=== PATIENT | female | born 1995 | race Two or more races ===

== ENCOUNTER → 2016-09-24 | Outpatient (CLI) | payer MEDICAID ==
[2016-09-24 09:04] LABS: Basophils # (auto) 0 uL; Basophils % (auto) 0.3 % (0.0-2.0); Eosinophils # (auto) 0.1 uL; Eosinophils % (auto) 0.8 % (0.0-7.0); Hematocrit 37.1 % (36.0-46.0); Hemoglobin 12.4 g/dL (12.2-16.2); Lymphocytes # (auto) 1.5 uL; Lymphocytes % (auto) 18.8 % (10.0-50.0); Mean Corpuscular Hemoglobin 30.4 pg (28.0-32.0); Mean Corpuscular Hgb Conc. 33.3 g/dL (32.0-36.0); Mean Corpuscular Volume 91.4 fL (80.0-100.0); Mean Platelet Volume 9.2 fL (7.4-10.4); Monocytes # (auto) 0.5 uL; Monocytes % (auto) 6.3 % (0.0-12.0); Neutrophils # (auto) 5.8 uL; Neutrophils % (auto) 73.8 % (37.0-80.0); Platelet Count (auto) 231 10^3/uL (140-450); Red Cell Distribution Width 14.6 % (11.6-16.0); White Blood Cell 7.8 10^3/uL (4.4-10.8)
== END | disposition home or self-care (01) ==
LOC: LAB 08:18
PROVIDERS: ATTEND Obstetrics & Gynecology
DX: Z34.00 Encounter for supervision of normal first pregnancy, unspecified trimester (principal); Z11.3 Encounter for screening for infections with a predominantly sexual mode of transmission; N76.0 Acute vaginitis
CPT/HCPCS: 36415; 85025; 87081

== ENCOUNTER 2016-10-11 22:39 | Observation (INO) | payer MEDICAID ==
[2016-10-13] MEDS ORDERED: PRENCAP61 PO (08:47)
== END 2016-10-11 23:54 | disposition home or self-care (01) | DRG 566 ==
LOC: LDRP 22:39
PROVIDERS: ADMIT Specialist; ATTEND Specialist
DX: O62.9 Abnormality of forces of labor, unspecified (principal); Z3A.38 38 weeks gestation of pregnancy
CPT/HCPCS: 59025; 81002; G0378

== ENCOUNTER 2016-12-02 14:29 | Emergency (ER) | payer OTHER ==
[~2016-12-02] VITALS: Ht 162.6 cm; Wt 77.1 kg
[~2016-12-02 14:29] MED LIST: PRENCAP61 PO
[2016-12-02 14:40] VITALS: BP 117/78
[2016-12-02] MEDS ORDERED: BACITRACIN TOP OINT 1 UD PKG TOP ONE (16:30)
[2016-12-02] MEDS ORDERED: IBUPROFEN 600 MG TAB PO ONE (16:30)
== END 2016-12-02 16:47 | disposition home or self-care (01) ==
LOC: EDUNIT# 14:29 → ER 14:46
DX: S60.022A Contusion of left index finger without damage to nail, initial encounter (principal); W23.0XXA Caught, crushed, jammed, or pinched between moving objects, initial encounter; Y93.89 Activity, other specified; Y99.0 Civilian activity done for income or pay; Y92.69 Other specified industrial and construction area as the place of occurrence of the external cause
CPT/HCPCS: 73140

== ENCOUNTER → 2017-04-30 | Outpatient (CLI) | payer MEDICAID ==
[2017-04-30 11:45] LABS: Basophils # (auto) 0 uL; Basophils % (auto) 0.5 % (0.0-2.0); Eosinophils # (auto) 0.1 uL; Eosinophils % (auto) 1.7 % (0.0-7.0); Hematocrit 37.5 % (36.0-46.0); Hemoglobin 12.8 g/dL (12.2-16.2); Lymphocytes # (auto) 1.7 uL; Lymphocytes % (auto) 19.9 % (10.0-50.0); Mean Corpuscular Hemoglobin 30.3 pg (28.0-32.0); Mean Corpuscular Hgb Conc. 34.1 g/dL (32.0-36.0); Mean Corpuscular Volume 88.8 fL (80.0-100.0); Mean Platelet Volume 8.5 fL (6.9-10.8); Monocytes # (auto) 0.3 uL; Neutrophils # (auto) 6.4 uL; Neutrophils % (auto) 73.9 % (37.0-80.0); Nucleated Red Blood Cells % 0.1 %; Platelet Count (auto) 265 10^3/uL (140-450); Red Cell Distribution Width 13.2 % (11.8-14.3); White Blood Cell 8.7 10^3/uL (4.4-10.8)
== END | disposition home or self-care (01) ==
LOC: LAB 10:18
PROVIDERS: ATTEND Obstetrics & Gynecology
DX: Z34.80 Encounter for supervision of other normal pregnancy, unspecified trimester (principal); Z31.430 Encounter of female for testing for genetic disease carrier status for procreative management; Z3A.00 Weeks of gestation of pregnancy not specified
CPT/HCPCS: 36415; 83036; 84146; 84702; 85025; 86592; 86703; 86762; 86850; 86900; 86901; 87086; 87340

== ENCOUNTER → 2017-06-10 | Outpatient (CLI) | payer MEDICAID | END | disposition home or self-care (01) | LOC: LAB 15:15 | PROVIDERS: ATTEND Obstetrics & Gynecology | DX: Z34.80 Encounter for supervision of other normal pregnancy, unspecified trimester (principal); Z3A.00 Weeks of gestation of pregnancy not specified | CPT/HCPCS: 87086 ==

== ENCOUNTER → 2017-07-01 | Outpatient (CLI) | payer MEDICAID ==
[2017-07-01 17:35] LABS: Alcohol, Urine < 3.0 mg/dL (0-5); Amphetamine Screen, Urine NEGATIVE (NEGATIVE); Barbiturate Scree,Urine NEGATIVE (NEGATIVE); Benzodiazephine Screen, Urine NEGATIVE (NEGATIVE); Cannabinoid Screen, Urine NEGATIVE (NEGATIVE); Cocaine Screen, Urine NEGATIVE (NEGATIVE); Opiate Scree,Urine NEGATIVE (NEGATIVE); Phencyclidine Screen, Urine NEGATIVE (NEGATIVE)
== END | disposition home or self-care (01) ==
LOC: LAB 16:36
PROVIDERS: ATTEND Obstetrics & Gynecology
DX: Z34.80 Encounter for supervision of other normal pregnancy, unspecified trimester (principal); Z3A.00 Weeks of gestation of pregnancy not specified
CPT/HCPCS: 80307

== ENCOUNTER → 2017-09-04 | Outpatient (CLI) | payer MEDICAID ==
[2017-09-04 07:53] LABS: Basophils # (auto) 0 uL; Basophils % (auto) 0.3 % (0.0-2.0); Eosinophils # (auto) 0 uL; Eosinophils % (auto) 0.4 % (0.0-7.0); Hematocrit 37.2 % (36.0-46.0); Hemoglobin 12.7 g/dL (12.2-16.2); Lymphocytes # (auto) 1.1 uL; Lymphocytes % (auto) 13.3 % (10.0-50.0); Mean Corpuscular Hgb Conc. 34.1 g/dL (32.0-36.0); Mean Corpuscular Volume 93.8 fL (80.0-100.0); Monocytes # (auto) 0.5 uL; Monocytes % (auto) 5.5 % (0.0-12.0); Neutrophils # (auto) 6.7 uL; Neutrophils % (auto) 80.5 % (37.0-80.0); Platelet Count (auto) 152 10^3/uL (140-450); Red Blood Cells 3.96 10^6/uL (4.0-5.20); Red Cell Distribution Width 14.3 % (11.8-14.3); White Blood Cell 8.4 10^3/uL (4.4-10.8)
== END | disposition home or self-care (01) ==
LOC: LAB 07:21
PROVIDERS: ATTEND Obstetrics & Gynecology
DX: O99.810 Abnormal glucose complicating pregnancy (principal); Z3A.00 Weeks of gestation of pregnancy not specified
CPT/HCPCS: 36415; 82951; 85025

== ENCOUNTER 2017-09-05 14:14 | Observation (INO) | payer MEDICAID | END 2017-09-05 15:54 | disposition home or self-care (01) | DRG 566 | LOC: LDRP 14:14 | PROVIDERS: ADMIT Obstetrics & Gynecology; ATTEND Obstetrics & Gynecology | DX: O30.003 Twin pregnancy, unspecified number of placenta and unspecified number of amniotic sacs, third trimester (principal); Z3A.31 31 weeks gestation of pregnancy | CPT/HCPCS: 59025; 76818; 81002; G0378 ==

== ENCOUNTER 2017-09-07 09:48 | Observation (INO) | payer MEDICAID | END 2017-09-07 11:45 | disposition home or self-care (01) | DRG 566 | LOC: LDRP 09:48 | PROVIDERS: ADMIT Obstetrics & Gynecology; ATTEND Obstetrics & Gynecology | DX: O30.003 Twin pregnancy, unspecified number of placenta and unspecified number of amniotic sacs, third trimester (principal); Z3A.31 31 weeks gestation of pregnancy | CPT/HCPCS: 59025; 76815; 81002; G0378 ==

== ENCOUNTER 2017-09-08 19:27 | Observation (INO) | payer MEDICAID | END 2017-09-08 20:44 | disposition home or self-care (01) | DRG 566 | LOC: LDRP 19:27 | PROVIDERS: ADMIT Specialist; ATTEND Specialist | DX: O62.9 Abnormality of forces of labor, unspecified (principal); Z3A.32 32 weeks gestation of pregnancy | CPT/HCPCS: G0378 ==

== ENCOUNTER 2017-09-12 13:56 | Observation (INO) | payer MEDICAID | END 2017-09-12 16:15 | disposition home or self-care (01) | DRG 566 | LOC: LDRP 13:56 | PROVIDERS: ADMIT Specialist; ATTEND Specialist | DX: O30.003 Twin pregnancy, unspecified number of placenta and unspecified number of amniotic sacs, third trimester (principal); Z3A.32 32 weeks gestation of pregnancy | CPT/HCPCS: 59025; 76818; 81002; G0378 ==

== ENCOUNTER 2017-09-15 11:10 | Observation (INO) | payer MEDICAID | END 2017-09-15 12:55 | disposition home or self-care (01) | DRG 566 | LOC: LDRP 11:10 → UNDODISOB 12:55 | PROVIDERS: ADMIT Obstetrics & Gynecology; ATTEND Obstetrics & Gynecology | DX: O30.003 Twin pregnancy, unspecified number of placenta and unspecified number of amniotic sacs, third trimester (principal); O60.03 Preterm labor without delivery, third trimester; Z3A.33 33 weeks gestation of pregnancy | CPT/HCPCS: 59025; 76818; 81002; G0378 ==

== ENCOUNTER 2017-09-20 16:00 | Observation (INO) | payer MEDICAID ==
[2017-09-20] MEDS ORDERED: BETAMETHASONE ACET (6MG/ML) 5ML VIAL IM SCH (16:31)
== END 2017-09-20 16:55 | disposition home or self-care (01) | DRG 566 ==
LOC: LDRP 16:00 → INTOOBSV 16:00
PROVIDERS: ADMIT Obstetrics & Gynecology; ATTEND Obstetrics & Gynecology
DX: O30.003 Twin pregnancy, unspecified number of placenta and unspecified number of amniotic sacs, third trimester (principal); O60.03 Preterm labor without delivery, third trimester; O26.893 Other specified pregnancy related conditions, third trimester; R10.30 Lower abdominal pain, unspecified; Z3A.33 33 weeks gestation of pregnancy
CPT/HCPCS: 59025; 81002; 96372; G0378

== ENCOUNTER 2017-09-26 10:55 | Observation (INO) | payer MEDICAID, OTHER ==
[2017-09-26] MEDS ORDERED: NIF10C GT (13:14)
== END 2017-09-26 13:25 | disposition home or self-care (01) | DRG 566 ==
LOC: LDRP 10:55
PROVIDERS: ADMIT Specialist; ATTEND Specialist
DX: O30.003 Twin pregnancy, unspecified number of placenta and unspecified number of amniotic sacs, third trimester (principal); Z3A.34 34 weeks gestation of pregnancy
CPT/HCPCS: 59025; 76818; 81002; G0378

== ENCOUNTER 2017-10-03 11:30 | Observation (INO) | payer MEDICAID, OTHER ==
[~2017-10-03 11:30] MED LIST changes: +NIF10C GT
[2017-10-03] MEDS ORDERED: NIFE10CA3 PO (14:10)
== END 2017-10-03 13:30 | disposition home or self-care (01) | DRG 566 ==
LOC: LDRP 11:30
PROVIDERS: ADMIT Specialist; ATTEND Specialist
DX: O30.003 Twin pregnancy, unspecified number of placenta and unspecified number of amniotic sacs, third trimester (principal); Z3A.35 35 weeks gestation of pregnancy
CPT/HCPCS: 59025; 76805; 76818; 81002; G0378

== ENCOUNTER 2017-10-09 12:50 | Observation (INO) | payer MEDICAID ==
[~2017-10-09 12:50] MED LIST changes: -NIF10C GT; +NIFE10CA3 PO
== END 2017-10-09 15:50 | disposition home or self-care (01) | DRG 955 ==
LOC: LDRP 12:50
PROVIDERS: ADMIT Specialist; ATTEND Specialist
DX: O30.009 Twin pregnancy, unspecified number of placenta and unspecified number of amniotic sacs, unspecified trimester (principal); Z3A.00 Weeks of gestation of pregnancy not specified
CPT/HCPCS: 59025; 76818; 81002; G0378

== ENCOUNTER 2017-10-16 01:40 | Inpatient (IN) | payer MEDICAID ==
[~2017-10-16] VITALS: Ht 157.5 cm; Wt 87.1 kg
[2017-10-16 02:35] LABS: Basophils # (auto) 0 uL; Basophils % (auto) 0.7 % (0.0-2.0); Eosinophils # (auto) 0.1 uL; Hematocrit 36.5 % (36.0-46.0); Hemoglobin 12.4 g/dL (12.2-16.2); Lymphocytes % (auto) 29.1 % (10.0-50.0); Mean Corpuscular Hemoglobin 32.1 pg (28.0-32.0); Mean Corpuscular Volume 94.5 fL (80.0-100.0); Monocytes # (auto) 0.4 uL; Monocytes % (auto) 5.6 % (0.0-12.0); Neutrophils # (auto) 4.4 uL; Neutrophils % (auto) 63.6 % (37.0-80.0); Nucleated Red Blood Cells % 0.1 %; Platelet Count (auto) 166 10^3/uL (140-450); Red Blood Cells 3.87 10^6/uL (4.0-5.20); Red Cell Distribution Width 14.7 % (11.8-14.3); White Blood Cell 6.9 10^3/uL (4.4-10.8)
[2017-10-16 02:45] LABS: Urine Bacteria FEW /hpf (None Seen); Urine Blood Negative /uL (Negative); Urine WBC 15 /hpf (0 - 5)
[2017-10-16 02:51] LABS: INR 0.83 (0.9-1.15); Partial Thromboplastin Time 25.4 sec (23.78-33.04)
[2017-10-16] MEDS ORDERED: TETRACAINE 1% INJ 2 ML VIAL IJ ONE (02:51)
[2017-10-16] MEDS ORDERED: fentaNYL CITRATE 100 MCG/2 ML VL ONE (02:54)
[2017-10-16] MEDS ORDERED: MORPHINE SULF(PF) 0.5MG/ML 10ML VIAL ONE (02:54)
[2017-10-16 02:55] LABS: Albumin 2.8 g/dL (3.4-5.0); BUN/Creatinine Ratio 14.9; Calcium 8.5 mg/dL (8.5-10.1)
[2017-10-16] MEDS ORDERED: MIDAZOLAM HCL 1MG/1ML-2 ML VIAL ONE (02:55)
[2017-10-16 02:59] LABS: Bilirubin, Total 0.3 mg/dL (0.2-1.0); Total Protein 7.2 g/dL (6.4-8.2)
[2017-10-16] MEDS ORDERED: HYDROmorphone HCL 2 MG/ML VL IV PRN (03:00)
[2017-10-16] MEDS ORDERED: NALOXONE HCL 0.4 MG/ML VIAL IV PRN (03:00)
[2017-10-16] MEDS ORDERED: LABETALOL HCL 5 MG/ML 4ML SYRINGE IV PRN (03:00)
[2017-10-16] MEDS ORDERED: KETOROLAC TROMETH 30 MG/ML 1ML VIAL IV PRN (03:00)
[2017-10-16] MEDS ORDERED: ePHEDrine SULFATE 50 MG/ML AMP IV PRN (03:00)
[2017-10-16] MEDS ORDERED: DEXAMETHASONE SOD PHOS 10MG/1ML VIAL INJ IV PRN (03:00)
[2017-10-16] MEDS ORDERED: ONDANSETRON HCL 4 MG/2 ML VIAL IV PRN ×2 (03:00→04:30)
[2017-10-16] MEDS ORDERED: NALBUPHINE HCL 10 MG/1ml INJECTION SUBCUT ONE (03:00)
[2017-10-16] MEDS ORDERED: diphenhdrAMINE HCL 50 MG/1 ML VL IV PRN (03:00)
[2017-10-16] MEDS ORDERED: PHENYLEPHRINE HCL 10 MG/ML VL ONE (03:42)
[2017-10-16] MEDS ORDERED: ceFAZolin 1GM VL ONE (03:42)
[2017-10-16] MEDS ORDERED: OXYTOCIN 10 UNIT/ML 10ML VIAL ONE (03:42)
[2017-10-16] MEDS ORDERED: LACTATED RINGER'S 1,000 ML IV SCH (04:24)
[2017-10-16] MEDS ORDERED: MORPHINE SULFATE 8mg/ml INJ SDV IV PRN (04:30)
[2017-10-16] MEDS ORDERED: ceFAZolin 1GM/100ML 50 ML IV SCH (04:30)
[2017-10-16] MEDS ORDERED: LACT. RINGERS/OXYTOCIN 20UNITS 1,000 ML IV SCH (05:32)
[2017-10-16] MEDS ORDERED: LACT. RINGERS/OXYTOCIN 20UNITS 1,000 ML IV ONE (05:36)
[2017-10-16] MEDS: KETOROLAC TROMETH 30 MG/ML 1ML VIAL IV SCH ×3 (06:41→18:51)
[2017-10-16 06:49] VITALS: BP 126/72
[2017-10-16 11:01] VITALS: BP 121/78
[2017-10-16] MEDS: ceFAZolin 1GM/100ML 50 ML IV SCH ×2 (11:47→20:42)
[2017-10-16 15:15] VITALS: BP 119/78
[2017-10-16] MEDS ORDERED: SIMETHICONE 80 MG CHEWABLE TABLET PO PRN (17:45)
[2017-10-16] MEDS ORDERED: IBUPROFEN 800 MG TAB PO PRN (17:45)
[2017-10-16 19:20] VITALS: BP 126/76
[2017-10-16 22:55] VITALS: BP 119/75
[2017-10-17] MEDS: KETOROLAC TROMETH 30 MG/ML 1ML VIAL IV SCH ×2 (02:30→06:00)
[2017-10-17] MEDS: DOCUSATE SOD 100 MG CAP PO SCH ×3 (02:41→22:15)
[2017-10-17 04:00] VITALS: BP 167/74
[2017-10-17] MEDS: ceFAZolin 1GM/100ML 50 ML IV SCH (04:21)
[2017-10-17 05:10] LABS: RPR Non Reactive (Non Reactive)
[2017-10-17 06:30] VITALS: BP 121/77
[2017-10-17] MEDS ORDERED: SIMETHICONE 80 MG CHEWABLE TABLET PO PRN (06:45)
[2017-10-17] MEDS ORDERED: HYDROcodone-ACET 5/325MG TAB PO PRN ×3 (06:45→07:00)
[2017-10-17 07:20] LABS: Basophils # (auto) 0 uL; Basophils % (auto) 0.5 % (0.0-2.0); Eosinophils # (auto) 0 uL; Eosinophils % (auto) 0.2 % (0.0-7.0); Hematocrit 25.9 % (36.0-46.0); Hemoglobin 8.9 g/dL (12.2-16.2); Lymphocytes # (auto) 1.2 uL; Lymphocytes % (auto) 13.6 % (10.0-50.0); Mean Corpuscular Hemoglobin 32.6 pg (28.0-32.0); Mean Corpuscular Hgb Conc. 34.4 g/dL (32.0-36.0); Mean Corpuscular Volume 94.8 fL (80.0-100.0); Monocytes # (auto) 0.4 uL; Monocytes % (auto) 4.6 % (0.0-12.0); Neutrophils # (auto) 7.4 uL; Neutrophils % (auto) 81.1 % (37.0-80.0); Platelet Count (auto) 141 10^3/uL (140-450); Red Blood Cells 2.73 10^6/uL (4.0-5.20); Red Cell Distribution Width 14.8 % (11.8-14.3); White Blood Cell 9.1 10^3/uL (4.4-10.8)
[2017-10-17 11:09] VITALS: BP 117/66
[2017-10-17] MEDS: traMADol HCL 50 MG TAB PO PRN ×2 (12:19→19:00)
[2017-10-17] MEDS: IBUPROFEN 800 MG TAB PO PRN (13:30)
[2017-10-17 15:10] VITALS: BP 118/69
[2017-10-17 19:00] VITALS: BP 121/68
[2017-10-17 23:00] VITALS: BP 111/74
[2017-10-18] MEDS: IBUPROFEN 800 MG TAB PO PRN ×2 (00:16→09:51)
[2017-10-18 03:00] VITALS: BP 112/58
[2017-10-18 07:30] VITALS: BP 133/84
[2017-10-18] MEDS: traMADol HCL 50 MG TAB PO PRN ×2 (08:47→16:57)
[2017-10-18] MEDS: DOCUSATE SOD 100 MG CAP PO SCH ×2 (09:50→22:25)
[2017-10-18 11:03] VITALS: BP 119/70
[2017-10-18 15:15] VITALS: BP 120/71
[2017-10-18 19:30] VITALS: BP 135/77
[2017-10-18 22:45] VITALS: BP 119/71
[2017-10-19] MEDS: IBUPROFEN 800 MG TAB PO PRN ×2 (02:42→11:17)
[2017-10-19 03:15] VITALS: BP 119/73
[2017-10-19 06:55] VITALS: BP 122/72
[2017-10-19] MEDS: DOCUSATE SOD 100 MG CAP PO SCH (10:00)
[2017-10-19 11:00] VITALS: BP 125/89
== END 2017-10-19 11:35 | disposition home or self-care (01) | DRG 540 ==
LOC: LDRP 01:40 → OBSVTOIN 01:40 → LDRP 05:54
PROVIDERS: ADMIT Specialist; ATTEND Specialist
PROC: 10D00Z1 Extraction of Products of Conception, Low, Open Approach (ICD-10-PCS; principal; 2017-10-16 03:14)
DX: O32.2XX2 Maternal care for transverse and oblique lie, fetus 2 (principal); Z37.2 Twins, both liveborn; O30.003 Twin pregnancy, unspecified number of placenta and unspecified number of amniotic sacs, third trimester; O32.1XX0 Maternal care for breech presentation, not applicable or unspecified; Z3A.37 37 weeks gestation of pregnancy
CPT/HCPCS: 36415; 51702; 59025; 80053; 81001; 85025; 85610; 85730; 86592; 86850; 86900; 86901; 96365; 96366; 96374; 96375; G0378; J0690; J1885; J2250; J2270; J2405; J2590

== ENCOUNTER 2020-06-08 05:42 | Emergency (ER) | payer MEDICAID ==
[~2020-06-08] VITALS: Ht 165.1 cm; Wt 90.7 kg
[2020-06-08 05:48] VITALS: BP 133/69
== END 2020-06-08 09:14 | disposition home or self-care (01) ==
LOC: ER 05:42
DX: R51.9 Headache, unspecified (principal); Z20.822 Contact with and (suspected) exposure to COVID-19; Z88.6 Allergy status to analgesic agent
CPT/HCPCS: 36415; 71045; 87426; 99284; C9803; U0003

== ENCOUNTER 2020-12-25 09:42 | Emergency (ER) | payer MEDICAID ==
[~2020-12-25] VITALS: Ht 162.6 cm; Wt 88.5 kg
[2020-12-25 10:44] VITALS: BP 106/74
== END 2020-12-25 11:30 | disposition home or self-care (01) ==
LOC: ER 09:42
DX: R50.9 Fever, unspecified (principal); R05 Cough; R06.02 Shortness of breath; Z20.822 Contact with and (suspected) exposure to COVID-19
CPT/HCPCS: 36415; 71045; 87426

== ENCOUNTER 2021-05-19 09:10 | Emergency (ER) | payer MEDICAID ==
[~2021-05-19] VITALS: Ht 162.6 cm; Wt 87.5 kg
[2021-05-19 09:48] VITALS: BP 117/75
[2021-05-19] MEDS ORDERED: AZIT250T PO (10:28)
[2021-05-19] MEDS ORDERED: PROM1SOL4 PO (10:28)
== END 2021-05-19 12:03 | disposition home or self-care (01) ==
LOC: ER 09:10
DX: U07.1 COVID-19 (principal); J20.9 Acute bronchitis, unspecified
CPT/HCPCS: 36415; 71045; 87426